=== PATIENT | female | born 1945 | race Caucasian/White ===

== ENCOUNTER → 2016-12-05 | Outpatient (CLI) | payer OTHER, MEDICARE ==
[~2016-12-05] MED LIST: CTP1X PO; OLMETAB3 PO
[2016-12-05 12:15] LABS: BASO % 0.3 %; BASO ABS # 0.03 K/uL (0-0.2); COMPLETE YES; EOS % 1.8 %; HEMATOCRIT 46.1 % (37-47); IG% 0.1 %; LYMPH % 34.6 %; LYMPH ABS # 3.05 K/uL (1.2-3.4); MEAN CELL VOLUME 88.8 fL (80-100); MEAN CORPUSCULAR HEMOGLOBIN 29.7 pg (25-34); MEAN CORPUSCULAR HGB CONC 33.4 g/dl (32-36); MEAN PLATELET VOLUME 10.3 fL (7.4-10.4); MONO % 6.4 %; NEUT % 56.8 %; PLATELET COUNT 166 K/uL (130-400); RED BLOOD COUNT 5.19 M/uL (4.2-5.4); WHITE BLOOD COUNT 8.81 K/uL (4.8-10.8)
[2016-12-05 12:33] LABS: ALT/SGPT 32 U/L (12-78); AST/SGOT 23 U/L (15-37); BLOOD UREA NITROGEN 19 mg/dl (7-18); CARBON DIOXIDE 26 mmol/L (21-32); CHLORIDE 106 mmol/L (98-107); CHOLESTEROL 154 mg/dl (0-200); GLUCOSE 91 mg/dl (70-99); POTASSIUM 3.8 mmol/L (3.5-5.1); SODIUM 143 mmol/L (136-145); TRIGLYCERIDES 103 mg/dl (0-150); VERY LOW DENSITY LIPOPROT CALC 21 mg/dl
[2016-12-05 12:36] LABS: CALCIUM 9.2 mg/dl (8.5-10.1)
[2016-12-05 12:57] LABS: ALB/GLOB RATIO 1.1 (0.9-2); ALKALINE PHOSPHATASE 84 U/L (45-117); CHOLESTEROL/HDL RATIO 2.4; HDL CHOLESTEROL 65 mg/dl; LDL CHOLESTEROL CALCULATED 68 mg/dl
== END | disposition home or self-care (01) ==
LOC: C.LABBFT 08:37
PROVIDERS: ATTEND Internal Medicine
DX: I10 Essential (primary) hypertension (principal); E78.5 Hyperlipidemia, unspecified; E55.9 Vitamin D deficiency, unspecified; E87.6 Hypokalemia

== ENCOUNTER → 2017-06-27 | Outpatient (CLI) | payer OTHER, MEDICARE ==
[2017-06-27 19:36] LABS: BLOOD UREA NITROGEN 27 mg/dl (7-18); CALCIUM 9.5 mg/dl (8.5-10.1); CARBON DIOXIDE 31 mmol/L (21-32); CREATININE 1.24 mg/dl (0.60-1.20); GLUCOSE 90 mg/dl (70-99); POTASSIUM 3.3 mmol/L (3.5-5.1); SODIUM 138 mmol/L (136-145)
== END | disposition home or self-care (01) ==
LOC: C.LABBFT 14:42
PROVIDERS: ATTEND Internal Medicine
DX: E55.9 Vitamin D deficiency, unspecified (principal); E87.6 Hypokalemia; Z11.59 Encounter for screening for other viral diseases

== ENCOUNTER → 2018-01-17 | Outpatient (CLI) | payer OTHER, MEDICARE ==
[2018-01-17 18:13] LABS: BLOOD UREA NITROGEN 24 mg/dl (7-18); CALCIUM 9.4 mg/dl (8.5-10.1); CARBON DIOXIDE 28 mmol/L (21-32); CREATININE 1.18 mg/dl (0.60-1.20); GLUCOSE 96 mg/dl (70-99); POTASSIUM 4.1 mmol/L (3.5-5.1); SODIUM 137 mmol/L (136-145)
== END | disposition home or self-care (01) ==
LOC: C.LABBFT 12:06
PROVIDERS: ATTEND Internal Medicine
DX: I10 Essential (primary) hypertension (principal); R31.29 Other microscopic hematuria

== ENCOUNTER → 2018-01-18 | Outpatient (CLI) | payer OTHER, MEDICARE ==
--- NOTE | 2018-01-18 16:00 | MAMMOGRAPHY REPORT ---
BILATERAL DIGITAL SCREENING MAMMOGRAM TOMOSYNTHESIS WITH CAD: 01/18/2018 CLINICAL HISTORY: Routine screening. Patient has no complaints. TECHNIQUE: The study was acquired using full field digital technology and interpreted from soft copy. Breast tomosynthesis in addition to standard 2D mammography was performed. Current study was also ev aluated with a Computer Aided Detection (CAD) system. COMPARISON: Comparison is made to exams dated: 03/29/2016 mammogram, 03/24/2015 mammogram, 07/23/2013 m ammogram, 07/20/2010 mammogram - [facility], 03/31/2008 mammogram, and 03/28/2006 mamm ogram. BREAST COMPOSITION: The tissue of both breasts is almost entirely fatty. FINDINGS: No suspicious masses, calcifications, or areas of architectural distortion are noted in either breast . There has been no significant interval change compared to prior exams. Bilateral benign-appearing calcifications are not significantly changed. IMPRESSION: ACR BI-RADS CATEGORY 2: BENIGN There is no mammographic evidence of malignancy. A 1 year screening mammogram is recommended.( [id number]) The patient will receive written notification of the results. Some breast cancers are not detected with mammography. A negative mammographic report should not lali y biopsy if a clinically suggestive mass is present. Shae Zamorano M.D. ah/:01/18/2018 14:57:15 Risk Control Specialist: RT Dean(R)(M), [facility] letter sent: Normal 1/2 BI-RADS Code: ACR BI-RADS Category 2: Benign
== END | disposition home or self-care (01) ==
LOC: C.MAMM 14:36
PROVIDERS: ATTEND Internal Medicine
DX: Z12.31 Encounter for screening mammogram for malignant neoplasm of breast (principal)